=== PATIENT | female | born 1990 | race African-American/Black ===

== ENCOUNTER 2023-08-08 05:23 | Emergency (ER) | payer OTHER ==
[~2023-08-08] VITALS: Ht 175.3 cm; Wt 86.0 kg
[2023-08-08 05:34] VITALS: O2SAT 99
[2023-08-08] MEDS ORDERED: KETOROLAC 60MG/2ML VIAL IM ONE (06:45)
[2023-08-08] MEDS ORDERED: DEXAMETHASONE 0.5MG/5ML ORAL SYR PO ONE (06:45)
[2023-08-08] MEDS: KETOROLAC 15MG/ML VIAL IM SCH (07:09)
[2023-08-08] MEDS: DEXAMETHASONE 10 MG/ML VIAL PO SCH (07:09)
[2023-08-08] MEDS ORDERED: PENICILLIN G BENZATHINE 1,200,000 UNITS/2ML SYR IM ONE (09:30)
[2023-08-08] MEDS ORDERED: AMOX1TAB16 MT (09:46)
[2023-08-08] MEDS: AMOXICILLIN/POTASSIUM CLAVULANATE 875/125MG TAB PO SCH (10:00)
[2023-08-08 11:28] VITALS: BP 128/75; PULSE 78; RESP 18; TEMP 98.3
== END 2023-08-08 11:49 | disposition home or self-care (01) ==
LOC: ER 05:23
DX: J02.0 Streptococcal pharyngitis (principal); Z88.2 Allergy status to sulfonamides; Z20.822 Contact with and (suspected) exposure to COVID-19
CPT/HCPCS: 81025; 87430; 96372; 99283; 87426; J1100; J1885; Z7610; J0561; J8540

== ENCOUNTER 2024-07-16 00:43 | Emergency (ER) | payer MEDICAID, OTHER ==
[~2024-07-16] VITALS: Ht 167.6 cm; Wt 63.0 kg
[~2024-07-16 00:43] MED LIST: AMOX1TAB16 MT
[2024-07-16 00:44] VITALS: O2SAT 99
[2024-07-16] MEDS: SODIUM CHLORIDE 0.9% 1,000 ML IV ONE (01:17)
[2024-07-16] MEDS: MORPHINE SULFATE 4 MG/ML INJ (FOR IV/IM USE) IV ONE (01:17)
[2024-07-16 01:18] LABS: BASOPHILS % 0.5 % (0.0-2.0); EOSINOPHILS % 1.8 % (0.0-5.0); HEMOGLOBIN. 10.4 g/dL (12.0-16.0); LYMPHOCYTES % 27.1 % (20.0-50.0); MEAN CORPUSCULAR HEMOGLOBIN 26.6 pg (28.0-32.0); MEAN CORPUSCULAR HGB CONC 32.5 g/dL (31.0-37.0); MEAN CORPUSCULAR VOLUME 81.7 fL (81.0-99.0); MEAN PLATELET VOLUME 9.6 fl (7.4-10.4); MONOCYTES % 9.9 % (2.0-8.0); NEUTROPHILS % 60.7 % (40.0-76.0); PLATELET 223 x1000/uL (130-400); RED BLOOD CELL COUNT 3.91 mill/uL (4.2-5.4); RED CELL DISTRIBUTION WIDTH 14.1 % (11.6-14.6); WHITE BLOOD COUNT 6.6 x1000/uL (4.5-11.0)
[2024-07-16] MEDS: ACETAMINOPHEN 1000MG/100ML 100 ML IV ONE (01:18)
[2024-07-16 01:26] LABS: CARBON DIOXIDE 25 mEq/L (21-32); CHLORIDE 105 mEq/L (98-107); POTASSIUM 3.6 mEq/L (3.5-5.1); SODIUM 138 mEq/L (136-145)
[2024-07-16 01:27] LABS: CALCIUM 8.9 mg/dL (8.7-10.4)
[2024-07-16 01:31] LABS: HCG SCREEN NEGATIVE
[2024-07-16 01:32] LABS: CREATININE 0.9 mg/dL (0.6-1.0); ETHANOL BLOOD < 10 mg/dL (<10); GLUCOSE 136 mg/dL (70-105); UREA NITROGEN BLOOD 18 mg/dL (9-23)
[2024-07-16 01:49] LABS: D-DIMER 0.93 mg/L FEU (<0.50); PARTIAL THROMBOPLASTIN TIME 25.9 sec (23.4-31.0); PROTHROMBIN TIME 10.6 sec (9.6-11.0)
[2024-07-16 01:52] LABS: TROPONIN I HIGH SENSITIVITY < 4 ng/L (3.0-34)
[2024-07-16] MEDS: MORPHINE SULFATE 4 MG/ML INJ (FOR IV/IM USE) IV NR (03:21)
[2024-07-16 03:55] LABS: *AMPHETAMINES SCREEN URINE NEGATIVE (NEGATIVE); *BARBITURATES SCREEN URINE NEGATIVE (NEGATIVE); *BENZODIAZEPINES SCREEN URINE NEGATIVE (NEGATIVE); *COCAINE SCREEN URINE NEGATIVE (NEGATIVE); CANNABINOID URINE SCREEN NEGATIVE (NEGATIVE); ECSTASY MDMA SCREEN URINE NEGATIVE (NEGATIVE); METHADONE URINE SCREEN NEGATIVE (NEGATIVE); OPIATES URINE SCREEN PRESUMPTIVE POSITIVE (NEGATIVE); PHENCYCLIDINE URINE SCREEN NEGATIVE (NEGATIVE)
[2024-07-16 04:42] LABS: TROPONIN I HIGH SENSITIVITY < 4 ng/L (3.0-34)
[2024-07-16 05:00] VITALS: BP 113/81; PULSE 69; RESP 16; TEMP 36.8; O2SAT 99
[2024-07-16] MEDS ORDERED: NAPR-1074 MT (05:16)
== END 2024-07-16 06:18 | disposition home or self-care (01) ==
LOC: ER 00:43
DX: R07.89 Other chest pain (principal); Z85.3 Personal history of malignant neoplasm of breast; Z88.2 Allergy status to sulfonamides; Z79.899 Other long term (current) drug therapy
CPT/HCPCS: 80305; 80048; 80320; 84703; 83880; 85025; 85379; 85610; 85730; 84484; 36415; 71045; 71275; 93005; 96365; 96375; 96376; 99285; Q9967; J2270; J7030; G0480; J0131